=== PATIENT | female | born 2000 | race African-American/Black ===

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

== ENCOUNTER 2018-06-27 22:40 | Emergency (ER) | payer OTHER, SELFPAY | END 2018-06-27 23:22 | disposition home or self-care (01) | LOC: MADERS 22:40 | DX: S81.811A Laceration without foreign body, right lower leg, initial encounter (principal); V47.6XXA Car passenger injured in collision with fixed or stationary object in traffic accident, initial encounter | CPT/HCPCS: 12001 ==

== ENCOUNTER 2018-08-03 19:48 | Emergency (ER) | payer BC, SELFPAY | END 2018-08-03 20:46 | disposition home or self-care (01) | LOC: MADERS 19:48 | DX: L23.9 Allergic contact dermatitis, unspecified cause (principal) | CPT/HCPCS: 99282 ==

== ENCOUNTER 2019-01-16 23:50 | Emergency (ER) | payer BC ==
[2019-01-17 00:19] LABS: Pregnancy Test - Urine (BHCG) Negative (Negative)
[2019-01-17 00:20] LABS: Bilirubin Negative (Negative); Blood, Urine Moderate (Negative); Clarity Clear (Clear); Glucose, Urine (Dipstick) Negative (Negative); Leukocyte Negative (Negative); Nitrite Negative (Negative); Pregu Control Background? CLEAR/WHITE (CLR/WHITE); Pregu Control Bar Appear? YES (CONTROL BAR); Protein, Urine (Dipstick) 30 mg/dL (Neg-Trace); Specific Gravity 1.035 (1.002-1.036)
[2019-01-17 00:29] LABS: Bacteria/HPF 1+ HPF (None Seen); RBC/HPF 0-3 HPF (0-3); Squamous Epithelial 21-50 HPF (0-3)
[2019-01-17 02:15] LABS: INR-International Normal Ratio 1.1
[2019-01-17 02:36] LABS: Anisocytosis SLIGHT = 6-15 cells (100X) (0-5/hpf); Elliptocytes MODERATE= 6-15 cells (100X) (0-1/hpf); Helmet Cells SLIGHT = 2-5 cells (100X) (0-1/hpf); MDiff Complete? YES; Microcytosis MODERATE=15-30 cells (100X) (0-5/hpf); Ovalocytes SLIGHT = 2-5 cells (100X) (0-1/hpf); Platelet Morphology Comment Appears Increased; RBC Morphology RARE SICKLE-LIKE CELLS SEEN
[2019-01-17 02:40] LABS: #Basophils 0.1 thou/uL (0.0-0.2); #Eosinphils 0.1 thou/uL (0.0-0.7); #Monocytes 0.7 thou/uL (0.11-0.59); %Basophils 1.9 % (0.0-1.0); %Eosinophils 1.2 % (0.0-10.0); %Lymphocytes 43.3 % (28.0-48.0); %Monocytes 9.8 % (0.0-4.0); %Neutrophils 43.9 % (31.0-61.0); Hemoglobin 10.5 g/dL (12.0-16.0); Mean Corpuscular HGB CONC 30.1 g/dL (32.0-36.0); Mean Corpuscular Hemoglobin 24.4 pg (25.0-35.0); Mean Corpuscular Volume 80.9 fL (78.0-98.0); Mean Platelet Volume 8.9 fL (7.4-10.4); Platelet Count 449 thou/uL (130-400); RBC Distribution Width 14.4 % (11.5-14.5); Red Blood Cell (RBC) Count 4.31 mill/uL (4.00-5.20); White Blood Cell (WBC) Count 6.8 thou/uL (4.8-10.8)
== END 2019-01-17 03:00 | disposition home or self-care (01) ==
LOC: MADERS 23:50
DX: N93.9 Abnormal uterine and vaginal bleeding, unspecified (principal)
CPT/HCPCS: 36415; 81003; 81015; 81025; 85025; 85610; 85730; 99284

== ENCOUNTER 2019-05-26 21:23 | Emergency (ER) | payer BC ==
[2019-05-26] MEDS ORDERED: Ibuprofen 800 MG TAB ONE (22:09)
[2019-05-26] MEDS ORDERED: Ondansetron ODT 4 MG TAB ONE (22:09)
[2019-05-26] MEDS ORDERED: Acetaminophen 500 MG TAB ONE (22:09)
[2019-05-26 23:36] LABS: BHCG - Serum Negative (NEGATIVE); Pregs Control Background? CLEAR/WHITE (CLR/WHITE); Pregs Control Bar Appear? YES (CONTROL BAR)
== END 2019-05-26 23:53 | disposition home or self-care (01) ==
LOC: MADERS 21:23
DX: N94.6 Dysmenorrhea, unspecified (principal); R11.0 Nausea
CPT/HCPCS: 84703; 99284; Q0162

== ENCOUNTER 2019-11-09 22:14 | Emergency (ER) | payer BC ==
[2019-11-09] MEDS ORDERED: Ondansetron ODT 4 MG TAB ONE (22:48)
[2019-11-09] MEDS ORDERED: Acetaminophen 500 MG TAB ONE (22:48)
[2019-11-09 23:14] LABS: Bilirubin Negative (Negative); Blood, Urine Trace (Negative); Clarity Slightly Cloudy (Clear); Glucose, Urine (Dipstick) Negative (Negative); Ketone, Urine Negative (Negative); Leukocyte Trace (Negative); Nitrite Negative (Negative); Pregnancy Test - Urine (BHCG) Negative (Negative); Pregu Control Background? CLEAR/WHITE (CLR/WHITE); Pregu Control Bar Appear? YES (CONTROL BAR); Protein, Urine (Dipstick) Negative (Neg-Trace); Specific Gravity 1.027 (1.002-1.036); Urobilinogen 0.2 mg/dL (Less than 2); pH, Urine 5.5 (5.0-9.0)
[2019-11-09 23:15] LABS: Specific Gravity, Urine 1.027 (1.002-1.036)
[2019-11-09 23:18] LABS: Bacteria/HPF 1+ HPF (None Seen); Squamous Epithelial 0-3 HPF (0-3)
[2019-11-09] MEDS ORDERED: Sulfameth/Trimethoprim DS 800-160mg TAB ONE (23:42)
== END 2019-11-09 23:45 | disposition home or self-care (01) ==
LOC: MADERS 22:14
DX: N39.0 Urinary tract infection, site not specified (principal); R11.2 Nausea with vomiting, unspecified; R52 Pain, unspecified
CPT/HCPCS: 81003; 81015; 81025; 99284; Q0162

== ENCOUNTER 2020-01-12 18:37 | Emergency (ER) | payer BC ==
[2020-01-13 18:47] LABS: SARS-CoV-2 MS2 Positive; SARS-CoV-2 N Gene Negative; SARS-CoV-2 S Gene Negative; SARS-CoV-2 by NAA Not Detected (NotDetected); SARS-CoV-2 orf1ab Negative
== END 2020-01-12 19:27 | disposition home or self-care (01) ==
LOC: MADERS 18:37
DX: J02.9 Acute pharyngitis, unspecified (principal); B34.9 Viral infection, unspecified; Z20.828 Contact with and (suspected) exposure to other viral communicable diseases
CPT/HCPCS: 87081; 87430; 87635; 99283; U0003

== ENCOUNTER 2021-01-30 06:59 | Emergency (ER) | payer BC ==
[2021-01-30] MEDS ORDERED: Mag-Al Plus 1200 MG/1200 MG/120 MG/30 ML UDCUP ONE (07:32)
[2021-01-30] MEDS ORDERED: Lidocaine Viscous Sol 2% 15 ml UD Cup ONE (07:32)
== END 2021-01-30 08:05 | disposition home or self-care (01) ==
LOC: MADERS 06:59
DX: K21.9 Gastro-esophageal reflux disease without esophagitis (principal); R07.9 Chest pain, unspecified; R00.1 Bradycardia, unspecified

== ENCOUNTER 2021-04-19 06:09 | Emergency (ER) | payer BC ==
[2021-04-19] MEDS ORDERED: Lidocaine Viscous Sol 2% 15 ml UD Cup ONE (06:32)
[2021-04-19] MEDS ORDERED: Mag-Al Plus 1200 MG/1200 MG/120 MG/30 ML UDCUP ONE (06:32)
[2021-04-19 06:52] LABS: #Basophils 0.1 thou/uL (0.0-0.2); #Eosinphils 0.1 thou/uL (0.0-0.7); #Lymphocytes 2.4 thou/uL (1.20-3.40); #Monocytes 0.7 thou/uL (0.11-0.59); #Neutrophils 3.3 thou/uL (1.40-6.50); %Basophils 0.9 % (0.0-1.0); %Eosinophils 1.6 % (0.0-10.0); %Lymphocytes 36.3 % (21.0-51.0); %Monocytes 10.4 % (0.0-10.0); %Neutrophils 50.7 % (42.0-75.0); Hemoglobin 13.1 g/dL (12.0-16.0); Mean Corpuscular HGB CONC 31.1 g/dL (32.0-36.0); Mean Corpuscular Hemoglobin 26.5 pg (27.0-31.0); Mean Corpuscular Volume 85.1 fL (78.0-98.0); Mean Platelet Volume 8.1 fL (7.4-10.4); Platelet Count 392 thou/uL (130-400); RBC Distribution Width 13.5 % (11.5-14.5); Red Blood Cell (RBC) Count 4.96 mill/uL (4.20-5.40); White Blood Cell (WBC) Count 6.6 thou/uL (4.8-10.8)
[2021-04-19 07:12] LABS: ALT (SGPT) Less than 7 U/L (8-55); AST (SGOT) 14 U/L (5-34); Albumin 4.3 g/dL (3.5-5.0); Alkaline Phosphatase 77 U/L (40-110); Anion Gap 11 mmol/L (10-20); BUN (Urea Nitrogen) 10 mg/dL (7.0-18.7); Bilirubin, Total 0.2 mg/dL (0.2-1.2); Calc. Creatinine Clearance 0 mL/min (70-130); Calcium 9.7 mg/dL (7.8-10.44); Carbon Dioxide 25 mmol/L (22-29); Chloride 105 mmol/L (98-107); Globulin 3.5 g/dL (2.4-3.5); Glucose 90 mg/dL (70-105); Magnesium 1.9 mg/dL (1.6-2.6); Potassium 4.2 mmol/L (3.5-5.1); Protein, Total 7.8 g/dL (6.0-8.3); Sodium 137 mmol/L (136-145)
[2021-04-19 07:22] LABS: BHCG - Serum Negative (NEGATIVE); Pregs Control Background? CLEAR/WHITE (CLR/WHITE); Pregs Control Bar Appear? YES (CONTROL BAR)
== END 2021-04-19 07:35 | disposition home or self-care (01) ==
LOC: MADERS 06:09
DX: R10.13 Epigastric pain (principal); K21.9 Gastro-esophageal reflux disease without esophagitis
CPT/HCPCS: 71045; 80053; 83735; 84484; 84703; 85025; 93005

== ENCOUNTER 2021-06-28 18:34 | Emergency (ER) | payer BC ==
[2021-06-28] MEDS ORDERED: Sodium Chloride 0.9% 1,000 ML ONE (22:04)
[2021-06-28] MEDS ORDERED: Ketorolac Tromethamine 30 MG/ML VIAL ONE (22:04)
[2021-06-28] MEDS ORDERED: Metoclopramide HCl 10 MG/2 ML VIAL ONE (22:04)
[2021-06-28] MEDS ORDERED: diphenhydrAMINE 50 MG/ML VIAL ONE (22:04)
[2021-06-28 22:27] LABS: BHCG - Serum Negative (NEGATIVE); Pregs Control Background? CLEAR/WHITE (CLR/WHITE); Pregs Control Bar Appear? YES (CONTROL BAR)
== END 2021-06-28 23:10 | disposition home or self-care (01) ==
LOC: MADERS 18:34
DX: R51.9 Headache, unspecified (principal); R29.700 NIHSS score 0; K21.9 Gastro-esophageal reflux disease without esophagitis
CPT/HCPCS: 84703; 96374; 96375; J1200; J1885; J2765; J7050

== ENCOUNTER 2021-07-30 00:59 | Emergency (ER) | payer BC ==
[2021-07-30 02:16] LABS: BHCG - Serum Negative (NEGATIVE); Pregs Control Background? CLEAR/WHITE (CLR/WHITE); Pregs Control Bar Appear? YES (CONTROL BAR)
== END 2021-07-30 02:40 | disposition home or self-care (01) ==
LOC: MADERS 00:59
DX: N93.9 Abnormal uterine and vaginal bleeding, unspecified (principal); K21.9 Gastro-esophageal reflux disease without esophagitis
CPT/HCPCS: 36415; 84703; 99284

== ENCOUNTER 2021-09-16 11:16 | Emergency (ER) | payer BC | END 2021-09-16 12:34 | disposition home or self-care (01) | LOC: MADERS 11:16 | DX: U07.1 COVID-19 (principal); J06.9 Acute upper respiratory infection, unspecified; K21.9 Gastro-esophageal reflux disease without esophagitis | CPT/HCPCS: 99283; U0003; U0005 ==

== ENCOUNTER 2022-10-03 14:42 | Emergency (ER) | payer BC, SELFPAY ==
[2022-10-03] MEDS ORDERED: Ketorolac Tromethamine 30 MG/ML VIAL ONE (15:24)
[2022-10-03] MEDS ORDERED: Sodium Chloride 0.9% 1,000 ML ONE (15:24)
== END 2022-10-03 16:22 | disposition home or self-care (01) ==
LOC: MADERS 14:42
DX: G44.209 Tension-type headache, unspecified, not intractable (principal)
CPT/HCPCS: 96374; J1885; J7050

== ENCOUNTER 2022-11-14 17:08 | Emergency (ER) | payer SELFPAY ==
[2022-11-14] MEDS ORDERED: Sodium Chloride 0.9% 1,000 ML ONE (18:11)
[2022-11-14] MEDS ORDERED: Ondansetron PF 4 MG/2 ML Vial ONE (18:11)
[2022-11-14 18:41] LABS: BHCG - Serum Negative (NEGATIVE); Pregs Control Background? CLEAR/WHITE (CLR/WHITE); Pregs Control Bar Appear? YES (CONTROL BAR)
[2022-11-14 18:50] LABS: #Basophils 0.1 thou/uL (0.0-0.2); #Eosinphils 0.1 thou/uL (0.0-0.7); #Lymphocytes 2.3 thou/uL (1.20-3.40); #Monocytes 0.8 thou/uL (0.11-0.59); #Neutrophils 7.7 thou/uL (1.40-6.50); %Basophils 1.1 % (0.0-1.0); %Eosinophils 0.8 % (0.0-10.0); %Lymphocytes 20.6 % (21.0-51.0); %Monocytes 7.3 % (0.0-10.0); %Neutrophils 70.2 % (42.0-75.0); Hematocrit 31.8 % (36.0-47.0); Hemoglobin 9.9 g/dL (12.0-16.0); Mean Corpuscular HGB CONC 31.3 g/dL (32.0-36.0); Mean Corpuscular Hemoglobin 25.2 pg (27.0-31.0); Mean Corpuscular Volume 80.5 fl (78.0-98.0); Mean Platelet Volume 8.9 fL (7.4-10.4); Platelet Count 394 10x3/uL (130-400); RBC Distribution Width 14.4 % (11.5-14.5); Red Blood Cell (RBC) Count 3.95 mill/uL (4.20-5.40)
[2022-11-14 18:51] LABS: ALT (SGPT) 13 U/L (8-55); AST (SGOT) 18 U/L (5-34); Alkaline Phosphatase 78 U/L (40-110); Anion Gap 13 mmol/L (10-20); BUN (Urea Nitrogen) 15 mg/dL (7.0-18.7); Bilirubin, Total 0.2 mg/dL (0.2-1.2); Calc. Creatinine Clearance 0 mL/min (70-130); Calcium 9.3 mg/dL (7.8-10.44); Carbon Dioxide 25 mmol/L (22-29); Chloride 105 mmol/L (98-107); Estimated GFR 94; Globulin 3.4 g/dL (2.4-3.5); Glucose 151 mg/dL (70-105); Magnesium 1.9 mg/dL (1.6-2.6); Potassium 3.7 mmol/L (3.5-5.1); Protein, Total 7.4 g/dL (6.0-8.3); Sodium 139 mmol/L (136-145)
== END 2022-11-14 19:34 | disposition home or self-care (01) ==
LOC: MADERS 17:08
DX: R55 Syncope and collapse (principal); R11.10 Vomiting, unspecified; K21.9 Gastro-esophageal reflux disease without esophagitis
CPT/HCPCS: 80053; 83735; 84703; 85025; 93005; 94760; 96361; 96374; J2405; J7050

== ENCOUNTER 2023-05-06 02:08 | Emergency (ER) | payer BC, SELFPAY ==
[2023-05-06 02:38] LABS: Bilirubin Negative (Negative); Blood, Urine Negative (Negative); Clarity Clear (Clear); Glucose, Urine (Dipstick) Negative (Negative); Ketone, Urine Negative (Negative); Leukocyte Moderate (Negative); Nitrite Negative (Negative); Protein, Urine (Dipstick) Negative (Neg-Trace); Specific Gravity, Urine 1.025 (1.005-1.030)
[2023-05-06 02:40] LABS: Pregnancy Test - Urine (BHCG) Negative (Negative); Pregu Control Background? CLEAR/WHITE (CLR/WHITE); Pregu Control Bar Appear? YES (CONTROL BAR); Specific Gravity 1.025 (1.002-1.036)
[2023-05-06 02:52] LABS: Bacteria/HPF 1+ HPF (None Seen); CAUTI Indications for Culture Pelvic or flank pain; RBC/HPF 0-3 HPF (0-3); Trichomonas/HPF 1+ HPF (None Seen)
[2023-05-06 02:53] LABS: Mucous/LPF Rare LPF (<2+)
[2023-05-06 02:54] LABS: Urine Culture Reflex Yes Yes
[2023-05-06] MEDS ORDERED: metroNIDAZOLE 250 MG TAB ONE (03:08)
[2023-05-06] MEDS ORDERED: cefTRIAXone (ROCEPHIN) 1 GM VIAL ONE (03:09)
== END 2023-05-06 03:28 | disposition home or self-care (01) ==
LOC: MADERS 02:08
DX: N39.0 Urinary tract infection, site not specified (principal); A59.8 Trichomoniasis of other sites
CPT/HCPCS: 81001; 81025; 87077; 87086; 96372; 99284; J0696

== ENCOUNTER 2023-08-28 20:16 | Emergency (ER) | payer BC ==
[2023-08-28] MEDS ORDERED: Acetaminophen 500 MG TAB ONE (20:57)
[2023-08-28] MEDS ORDERED: Dexamethasone 4 MG TAB ONE (20:57)
[2023-08-28 21:32] LABS: Mononucleosis NEGATIVE (NEGATIVE)
[2023-08-28 21:33] LABS: MONO NEGATIVE CONTROL ZONE White (Negative) (White); MONO POSITIVE CONTROL Pink Line (Positive) (PINK/RED)
== END 2023-08-28 22:06 | disposition home or self-care (01) ==
LOC: MADERS 20:16
DX: J02.9 Acute pharyngitis, unspecified (principal); K05.10 Chronic gingivitis, plaque induced; J35.8 Other chronic diseases of tonsils and adenoids; K21.9 Gastro-esophageal reflux disease without esophagitis
CPT/HCPCS: 36415; 86308; 87081; 87430; 99283; J8540

== ENCOUNTER 2024-01-26 23:03 | Emergency (ER) | payer BC ==
[2024-01-26] MEDS ORDERED: Ibuprofen 600 MG TAB ONE (23:16)
== END 2024-01-26 23:22 | disposition home or self-care (01) ==
LOC: MADERS 23:03
DX: K02.9 Dental caries, unspecified (principal); K04.7 Periapical abscess without sinus; J02.9 Acute pharyngitis, unspecified
CPT/HCPCS: 99282